=== PATIENT | male | born 1975 | race Caucasian/White ===

== ENCOUNTER 2021-05-01 12:09 | Outpatient (CLI) | payer BC ==
[2021-05-01 13:52] LABS: #Eosinphils 0.3 10x3/uL (0.0-0.5); #Monocytes 0.7 10x3/uL (0.0-1.1); #Neutrophils 5.3 10x3/uL (1.5-8.4); %Basophils 0.3 % (0.0-2.0); %Eosinophils 3.7 % (0.0-6.0); %Lymphocytes 29.3 % (18.0-47.0); %Neutrophils 58.4 % (40.0-75.0); Hemoglobin 12.6 g/dL (13.5-17.5); Mean Corpuscular HGB CONC 32.3 g/dL (32.0-36.0); Mean Corpuscular Hemoglobin 29.5 pg (27.0-33.0); Mean Corpuscular Volume 91.3 fl (81.2-95.1); Mean Platelet Volume 8.7 fl (7.4-10.4); Platelet Count 260 10x3/uL (150-450); RBC Distribution Width 12.4 % (11.5-14.5); Red Blood Cell (RBC) Count 4.27 10x6/uL (4.32-5.72); White Blood Cell (WBC) Count 9.1 10x3/uL (3.5-10.5)
[2021-05-02 08:00] LABS: SARS-CoV-2 PCR by NAA Not Detected (NotDetected)
== END 2021-05-01 12:10 | disposition home or self-care (01) ==
LOC: LABBT 12:09
PROVIDERS: ATTEND Surgery
DX: Z01.812 Encounter for preprocedural laboratory examination (principal); K40.20 Bilateral inguinal hernia, without obstruction or gangrene, not specified as recurrent; Z20.822 Contact with and (suspected) exposure to COVID-19
CPT/HCPCS: 85025; U0003; U0005

== ENCOUNTER 2021-05-04 07:25 | Day surgery (SDC) | payer BC ==
[2021-05-03 12:03] VITALS: BMI 19.0
[2021-05-04] MEDS ORDERED: Fentanyl 100 MCG/2 ML VIAL ONE ×3 (07:38→12:05)
[2021-05-04] MEDS ORDERED: Dexmedetomidine 200 MCG/2 ML VIAL ONE (07:38)
[2021-05-04] MEDS ORDERED: Famotidine/PF 20 mg/2ml Vial ONE (07:38)
[2021-05-04] MEDS ORDERED: SUGAMMADEX SODIUM 500 MG/5 ML VIAL ONE (08:08)
[2021-05-04] MEDS ORDERED: Bupivacaine 0.25% HCL 30 ML VIAL ONE (08:11)
[2021-05-04] MEDS ORDERED: Lidocaine 1% w/Epinephrine 1:100K 20 ML VIAL ONE (08:11)
[2021-05-04] MEDS ORDERED: Midazolam HCl 2 mg/2 ml Vial ONE (08:24)
[2021-05-04] MEDS ORDERED: PROPOFOL 200 MG/20 ML VIAL ONE (08:25)
[2021-05-04] MEDS ORDERED: Lidocaine 1% PF 5 ML VIAL ONE (08:25)
[2021-05-04] MEDS ORDERED: Metoclopramide HCl 10 MG/2 ML VIAL ONE (08:25)
[2021-05-04] MEDS ORDERED: Rocuronium Bromide 10 MG/ML (10ML VIAL) ONE (08:25)
[2021-05-04] MEDS ORDERED: Dexamethasone 20 MG/5 ML VIAL ONE (08:25)
[2021-05-04] MEDS ORDERED: Ketorolac Tromethamine 30 MG/ML VIAL ONE (08:25)
[2021-05-04] MEDS ORDERED: Ondansetron PF 4 MG/2 ML Vial ONE (08:25)
[2021-05-04] MEDS ORDERED: HYDROcodone/Acetaminophen 5/325 mg Tablet ONE (13:15)
== END 2021-05-04 13:38 | disposition home or self-care (01) ==
LOC: SDC 07:25
PROVIDERS: ATTEND Surgery
PROC: 0YUA4JZ Supplement Bilateral Inguinal Region with Synthetic Substitute, Percutaneous Endoscopic Approach (ICD-10-PCS; principal; 2021-05-04)
DX: K40.20 Bilateral inguinal hernia, without obstruction or gangrene, not specified as recurrent (principal); J45.909 Unspecified asthma, uncomplicated; F17.210 Nicotine dependence, cigarettes, uncomplicated; Z91.018 Allergy to other foods
CPT/HCPCS: C1781; J0690; J1100; J1885; J2250; J2405; J2704; J2765; J3010; S0020; S0028